=== PATIENT | female | born 1965 | race Caucasian/White ===

== ENCOUNTER → 2016-07-12 | Outpatient (CLI) | payer OTHER ==
--- NOTE | 2016-07-12 17:24 | MA ---
Screening Digital Mammogram With iCAD Analysis Clinical Indications: Routine screening. Technique: Standard cephalocaudal and mediolateral oblique projections were obtained. This examinatio n was processed by the iCAD computer aided detection system. Comparison: July 2015, June 2014, May 2013, May 2012, April 2011, April 2010, April 2009, April 2008. Breast density: Type C; Heterogeneously dense. Findings: CAD was reviewed. No spiculated masses, suspicious calcifications or other signs of malign ann are identified. There has been no significant change in the appearance of either breast. Impression: Negative mammogram. BI-RADS 1. Recommendation: Annual screening is long as physical examination is negative in this patient with het erogeneously dense breasts. [facility] will send a result letter to the patient. Dense breast parenchyma diminishes mammographic sensitivity. Negative mammography should not preclude additional workup of a clinically suspicious finding. The patient's information is entered into a reminder system with a target due date for her next mammo gram.
== END ==
LOC: BMCIMAGING 15:37
DX: Z12.31 Encounter for screening mammogram for malignant neoplasm of breast (principal)
CPT/HCPCS: G0202

== ENCOUNTER → 2016-08-25 | Outpatient (CLI) | payer OTHER | LOC: BMCIMAGING 10:32 | PROVIDERS: ATTEND Podiatrist Foot & Ankle Surgery | DX: S92.512A Displaced fracture of proximal phalanx of left lesser toe(s), initial encounter for closed fracture (principal) ==

== ENCOUNTER → 2016-09-15 | Outpatient (CLI) | payer OTHER | LOC: BMCIMAGING 10:24 | PROVIDERS: ATTEND Podiatrist Foot & Ankle Surgery | DX: S92.502D Displaced unspecified fracture of left lesser toe(s), subsequent encounter for fracture with routine healing (principal) ==

== ENCOUNTER → 2016-10-13 | Outpatient (CLI) | payer OTHER | LOC: BMCIMAGING 13:12 | PROVIDERS: ATTEND Podiatrist Foot & Ankle Surgery | DX: S92.505D Nondisplaced unspecified fracture of left lesser toe(s), subsequent encounter for fracture with routine healing (principal) ==

== ENCOUNTER → 2017-07-14 | Outpatient (CLI) | payer OTHER | LOC: BMCIMAGING 13:09 | PROVIDERS: ATTEND Internal Medicine | DX: Z12.31 Encounter for screening mammogram for malignant neoplasm of breast (principal); Z13.820 Encounter for screening for osteoporosis; M85.89 Other specified disorders of bone density and structure, multiple sites; Z78.0 Asymptomatic menopausal state ==

== ENCOUNTER → 2018-07-30 | Outpatient (CLI) | payer OTHER | LOC: BMCIMAGING 15:23 | PROVIDERS: ATTEND Internal Medicine | DX: Z12.31 Encounter for screening mammogram for malignant neoplasm of breast (principal) ==